=== PATIENT | female | born 1950 | race Caucasian/White ===

== ENCOUNTER 2019-05-21 10:51 | Day surgery (SDC) | payer OTHER, SELFPAY ==
--- NOTE | 2019-05-21 | PATH_ITS ---
[facility] Accession Number: [id number] . 01 Material submitted: . colon - HEPATIC FLEXURE POLYP . 02 Diagnosis: Hepatic Flexure, Polyp, Biopsy: Sessile serrated adenoma with cytological dysplasia. Please see comment. No evidence of malignancy. MRV/05/22/2019 . 02 Comment: Current surveillance guidelines recommend that a sessile serrated adenoma with cytological dysplasia should be treated similar to an advanced adenoma. Complete polypectomy and shortened surveillance interval are recommended. . 02 Electronically signed: . Teresa Shaver MD, Pathologist NPI- [id number] . 01 Gross description: . HEPATIC FLEXURE POLYP: Received in formalin are multiple fragment(s) of luque, soft tissue measuring 0.1 x 0.1 x 0.1 cm to 0.6 x 0.5 x 0.4 cm which is entirely submitted and submitted entirely in 1 cassette(s) /DMC /DMC . 02 Pathologist provided ICD-10: D12.3 . 02 CPT . 175935 Performed at: 01 [facility] [address], [place], [place] [id number] MD Alan Davalos MD Phone: [phone] Performed at: 02 [facility] [place] [address] [place], [place] [id number] MD Teresa Shaver MD Phone: [phone]
[2019-05-21 11:16] VITALS: BP 135/91; PULSE 94; RESP 17; TEMP 36.5; O2SAT 95; BMI 23.6
[2019-05-21] MEDS: SODIUM CHLORIDE 0.9% 1,000 ML 100 ML IV (11:49)
--- NOTE | 2019-05-21 13:02 | PM.HP.1 ---
History of Present Illness Date Patient Seen: 05/21/19 Time Patient Seen: 13:02 Chief complaint: [id number] Narrative: Colorectal cancer screening Patient History Social History household members: spouse Family & Social History Social History: household members spouse Meds Home Medications Medication Instructions Recorded Confirmed Type No Known Home Medications 05/21/19 05/21/19 History Allergies Allergy/AdvReac Type Severity Reaction Status Date / Time No Known Drug Allergies Allergy Verified 05/21/19 11:50 Exam Vital Signs (past 8 hours): - 05/21/19 11:16 Temperature 97.7 F Pulse Rate 94 H Respiratory Rate 17 Blood Pressure 135/91 H Pulse Oximetry 95 Oxygen Delivery Method Room Air Narrative Exam Narrative: Oropharynx free of lesions Chest clear to auscultation percussion Cardiac exam reveals no S3 or murmur Assessment & Plan Assessment & Plan narrative: Need for colorectal cancer screening. Risks, benefits, alternatives to colonoscopy have been explained. This will be performed today.
--- NOTE | 2019-05-21 13:03 | PM.OP.ENDO ---
Operative Date/Time/Diagnoses Date of procedure: 05/21/19 Time of procedure: 13:03 Pre-op diagnosis: See indication and findings Procedure & Clinicians Study performed: Colonoscopy Same procedure as scheduled: Yes Indications: Screening Surgeon: Lance Murillo Procedure Notes Procedure in detail: After informed consent was obtained the patient was placed in the left lateral decubitus position. The video colonoscope was introduced into the rectum slowly advanced to the cecum. On slow withdrawal mucosa was carefully examined. Preparation was good. The scope was removed. The patient tolerated the procedure well. Blood loss none Complications none Sedation Total sedation time 23 minutes Versed 7 mg fentanyl 150 micro g IV titration Findings 1. 2 cm flat polyp with a mucus cap consistent with large flat sessile serrated adenoma. This was injected with 2 cc of saline prior to removing with hot snare in a piecemeal fashion for an endoscopic mucosa resection. Subsequently, a spot was substituted into the needle and the area nearby was tattooed so it can be found in the future. 2. Otherwise negative colonoscopy to cecum Given the large size of this polyp patient will need follow-up in 1 year for surveillance and in particular to make sure that this polyp has been removed completely.
[2019-05-21] MEDS: MIDAZOLAM 5 MG/5 ML VIAL IV (13:51)
[2019-05-21] MEDS: fentaNYL 250 MCG/5 ML INJ IV (13:51)
[2019-05-21 13:52] VITALS: BP 116/72; PULSE 78; RESP 13; TEMP 36.4; O2SAT 97
[2019-05-21 13:57] VITALS: BP 110/71; PULSE 76; RESP 16; O2SAT 96
[2019-05-21 14:02] VITALS: BP 121/79; PULSE 87; RESP 14; O2SAT 98
--- NOTE | 2019-05-21 14:03 | SUR.PHASEI ---
Declined po intake
[2019-05-21 14:08] VITALS: BP 120/78; PULSE 98; RESP 15; TEMP 36.2; O2SAT 99
[2019-05-21 14:45] VITALS: BP 125/80; PULSE 95; RESP 16; TEMP 36.3; O2SAT 99
== END 2019-05-21 14:47 | disposition home or self-care (01) ==
PROVIDERS: Family Provider Internal Medicine; PCP Internal Medicine; Visit Provider Internal Medicine Gastroenterology
PROC: 0DJD8ZZ Inspection of Lower Intestinal Tract, Via Natural or Artificial Opening Endoscopic (ICD-10-PCS; CPT 45378; principal; 2019-05-21 12:30)
DX: Z12.11 Encounter for screening for malignant neoplasm of colon (principal); D12.3 Benign neoplasm of transverse colon
CPT/HCPCS: 45385; 45381; J2250; J3010

== ENCOUNTER → 2020-10-26 18:33 | Outpatient (ROUT) | payer OTHER, SELFPAY ==
[2020-10-26 19:15] LABS: Aspartate Aminotransferase 30 IU/L (14-36); BUN Creatinine Ratio 16.7 (6-22); Blood Urea Nitrogen 13 mg/dL (7-17); Calcium 9.5 mg/dL (8.4-10.2); Carbon Dioxide 29 mmol/L (22-32); Chloride 98 mmol/L (98-107); Cholesterol 227 mg/dL (140-199); Estimated Glomerular Filt Rate > 60.0 mL/min (>60); Glucose 76 mg/dL (80-110); HEMOLYSIS < 15 (0-50); Potassium 3.6 mmol/L (3.4-5.1); Sodium 134 mmol/L (137-145); Triglycerides 52 mg/dL (35-150)
[2020-10-26 19:24] LABS: HDL Cholesterol 114 mg/dL (40-60); LDL Cholesterol Calculated 103 mg/dL (<100)
== END ==
PROVIDERS: Family Provider Internal Medicine; PCP Internal Medicine; Visit Provider Internal Medicine
DX: I10 Essential (primary) hypertension (principal); E78.2 Mixed hyperlipidemia
CPT/HCPCS: 80048; 80061; 84450

== ENCOUNTER 2020-12-29 07:51 | Day surgery (SDC) | payer OTHER, SELFPAY ==
--- NOTE | 2020-12-29 | PATH_ITS ---
[facility] Accession Number: [id number] . 01 Material submitted: . colon - PREVIOUS POLYPECTOMY SITE SCAR . 02 Diagnosis: Colon, Previous Polypectomy Site Scar, Biopsy: Sessile serrated adenoma. MRV 01/03/2021 1347 Local . 02 Electronically signed: . Artur Weinstein MD, PhD, Pathologist NPI- [id number] . 01 Gross description: . PREVIOUS POLYPECTOMY SITE SCAR: Received in formalin are 3 fragment(s) of luque, soft tissue measuring 0.2 x 0.2 x 0.1 cm to 0.3 x 0.2 x 0.2 cm submitted entirely in 1 cassette(s) /MOLLY 12/31/2020 2320 Local . 02 Pathologist provided ICD-10: D12.6 . 02 CPT . 448894 Performed at: 01 [facility] [address], [place], [place] [id number] MD Alan Davalos MD Phone: [phone] Performed at: [address] [facility] [address] [place], [place] [id number] MD Teresa Shaver MD Phone: [phone]
[2020-12-29] MEDS: SODIUM CHLORIDE 0.9% 1,000 ML 84 ML IV (08:00)
[2020-12-29 08:20] LABS: COVID19 -Nasal RAPID Negative (Negative)
[2020-12-29 08:47] VITALS: BP 127/80; PULSE 93; RESP 16; TEMP 36.7; O2SAT 95; BMI 23.3
--- NOTE | 2020-12-29 09:15 | PM.HP.1 ---
History of Present Illness History of Present Illness Date Patient Seen: 12/29/20 Chief complaint: SDC Narrative: History of large sessile serrated adenoma with dysplasia 1 year ago. Need to check for complete removal. Patient History Medical History (Updated 12/29/20 @ 08:40 by Teresa Ribeiro RN) Hypertension Family & Social History Social History: household members spouse Tobacco & Substance use: Smoking Status Never smoker alcohol intake frequency a few times a month Substance Use Type does not use Meds Home Medications and Allergies Home Medications Medication Instructions Recorded Confirmed Type losartan-hydrochlorothiazide 1 tab PO DAILY 12/29/20 12/29/20 History Allergies Allergy/AdvReac Type Severity Reaction Status Date / Time No Known Drug Allergies Allergy Verified 12/29/20 08:40 Exam Vital Signs (past 8 hours): - 12/29/20 08:47 12/29/20 09:05 12/29/20 09:10 Temperature 98.1 F 98.4 F Pulse Rate 93 H 80 77 Respiratory Rate 16 16 22 Blood Pressure 127/80 145/98 H 160/98 H Pulse Oximetry 95 93 93 Oxygen Delivery Method Room Air Oxygen Flow Rate 0 Narrative Exam Narrative: Oropharynx free of lesions Chest clear to auscultation percussion Cardiac exam reveals no S3 or murmur Objective Labs Labs: Laboratory Results - last 24 hr 12/29/20 08:02 SARS-CoV-2 (PCR) Negative Assessment & Plan Assessment & Plan narrative: History of advanced sessile serrated adenoma with dysplasia 1 year ago. Need to check for complete removal and rule out other polyps. Risks, benefits, alternatives have been explained. Quality MIPS - Admit Advanced Care Plan / Current Medications Measures: #47 ? Advanced Care Plan Clinician documentation instruction: document at admission. [] I confirmed that the patient's Advance Care Plan is present, code status is documented, or surrogate decision maker is listed in the patient?s medical record. [SATISFIES [facility] PERFORMANCE] If Yes, Stop Here [] The patient?s Advance Care plan is not present because: (select) [MIPS PERFORMANCE EXCEPTION/EXCLUSION] [] I confirmed today that the patient does not wish or was not able to name a surrogate decision maker or provide an Advance Care Plan. [] Hospice care is currently being provided or has been provided this calendar year [] I did NOT confirm today the presence of an Advance Care Plan or surrogate decision maker documented within the patient's medical record. [DOES NOT SATISFY MIPS PERFORMANCE] #130 - Documentation of Current Medications in the Medical Record Clinician documentation instruction: use macro the first time you see a patient. [] I have utilized all available immediate resources to obtain, update, or review the patient?s current medications. [SATISFIES MIPS PERFORMANCE] If Yes, Stop Here [] The patient is not eligible for medication reconciliation; the patient is in an emergent medical situation where delaying treatment would jeopardize the patient?s health. [MIPS PERFORMANCE EXCEPTION/EXCLUSION] [] I did NOT confirm, update or review the patient's current list of medications today. [DOES NOT SATISFY MIPS PERFORMANCE] MIPS - CL Central Venous Catheter Placement Measure: #76 ? Prevention of Central Venous Catheter (CVC) ? Related Bloodstream Infection Clinician documentation instruction: use macro every time you place a central line. [] All elements of Maximal Sterile Barrier Technique, including hand hygiene, skin prep, and sterile ultrasound technique (if used) were followed. [SATISFIES MIPS PERFORMANCE] If Yes, Stop Here [] If ?No?, the medical reason all elements were NOT used for medical reason [] (ex. emergent condition). [] Maximal Sterile Barrier Technique was not followed, no reason provided [DOES NOT SATISFY MIPS PERFORMANCE] MIPS - DC Heart Failure Measures: #5 - Heart Failure (HF): Angiotensin-Converting Enzyme (ASHU) Inhibitor or Angiotensin Receptor Pilar (ARB) Therapy for Left Ventricular Systolic Dysfunction (LVSD) and #8 - Heart Failure (HF): Beta-Pilar Therapy for Left Ventricular Systolic Dysfunction (LVSD) Clinician documentation instruction: use macro at every CHF discharge. [] The patient has current or prior documentation of left ventricular ejection fraction (LVEF) less than 40%, or moderate or severely depressed left ventricular systolic function. Answer both: [SATISFIES MIPS PERFORMANCE] [] The patient was prescribed or already taking an Angiotensin-Converting Enzyme (ASHU) Inhibitor, or Angiotensin Receptor Pilar (ARB). [] The patient was prescribed or already taking a beta-pilar. If Yes to Both, Stop Here [] Patient not prescribed/taking: [MIPS PERFORMANCE EXCEPTION/EXCLUSION] [] ASHU or ARB for medical/patient/system reason(s) including [] (ex. allergy, intolerance, contraindication) [] Beta-pilar for medical/patient/system reason(s) including [] (ex. allergy, intolerance, contraindication) [] Patient not prescribed/taking: [DOES NOT SATISFY MIPS PERFORMANCE] [] ASHU or ARB, no reason given [] Beta-pilar, no reason given
--- NOTE | 2020-12-29 09:17 | PM.OP.ENDO ---
Operative Date/Time/Diagnoses Date of procedure: 12/29/20 Pre-op diagnosis: See indication and findings Procedure & Clinicians Study performed: Colonoscopy Indications: Large sessile serrated adenoma at the hepatic flexure status post removal. Pathology shows dysplasia. One year follow-up. Surgeon: Lance Murillo Procedure Notes Procedure in detail: After informed consent was obtained the patient was placed left lateral decubitus position. The video colonoscope was introduced the rectum slowly advanced to the cecum. Preparation was good. On slow withdrawal mucosa was carefully examined. Scope was removed. The patient on the procedure well. Blood loss none Complications none Sedation Total sedation time 21 minutes Versed 7 mg fentanyl 150 micro g IV titration Findings 1. Extensive sigmoid diverticulosis 2. Area of scar in the hepatic flexure with tattoo. One area had a little bit of a raised area which was Jumbo biopsy removed x6. This area is completely treated. 3. Otherwise negative colonoscopy to cecum Pending the outcome of biopsies she will need follow-up colonoscopy in 3 or 5 years.
[2020-12-29] MEDS: fentaNYL 250 MCG/5 ML INJ IV (09:45)
[2020-12-29] MEDS: MIDAZOLAM 5 MG/5 ML VIAL IV (09:47)
[2020-12-29 10:02] VITALS: BP 102/67; PULSE 82; RESP 14; TEMP 36.3; O2SAT 96
[2020-12-29 10:06] VITALS: BP 97/69; PULSE 74; RESP 13; O2SAT 95
[2020-12-29 10:11] VITALS: BP 101/73; PULSE 74; RESP 13; O2SAT 97
[2020-12-29 10:15] VITALS: BP 108/66; PULSE 70; RESP 20; TEMP 36.2; O2SAT 98
[2020-12-29 10:30] VITALS: BP 107/63; PULSE 71; RESP 18; TEMP 36.8; O2SAT 98
== END 2020-12-29 10:40 | disposition home or self-care (01) ==
PROVIDERS: Family Provider Internal Medicine; PCP Internal Medicine; Referring Provider Internal Medicine Gastroenterology; Visit Provider Internal Medicine Gastroenterology
PROC: 0DJD8ZZ Inspection of Lower Intestinal Tract, Via Natural or Artificial Opening Endoscopic (ICD-10-PCS; CPT 45378; principal; 2020-12-29 09:30)
DX: D12.3 Benign neoplasm of transverse colon (principal); Z20.822 Contact with and (suspected) exposure to COVID-19; K57.30 Diverticulosis of large intestine without perforation or abscess without bleeding
CPT/HCPCS: 45380; 87635; J2250; J3010

== ENCOUNTER 2024-11-03 09:12 | Day surgery (SDC) | payer MEDICARE, OTHER, SELFPAY ==
--- NOTE | 2024-11-03 10:02 | P.HP_ITS ---
History of Present Illness History of Present Illness Chief complaint: [facility] Narrative: History of sessile serrated adenoma with cytologic dysplasia years ago. Need for follow-up colonoscopy. Location was at the hepatic flexure. [facility] Medical History (Updated 12/29/20 @ 08:40 by Teresa Ribeiro RN) Hypertension Social History household members: spouse Smoking Status: Never smoker Meds Home Medications and Allergies Home Medications Medication Instructions Recorded Confirmed Type losartan 50 mg-hydrochlorothiazide 1 tab PO DAILY 12/29/20 11/03/24 History 12.5 mg tablet Allergies Allergy/AdvReac Type Severity Reaction Status Date / Time No Known Drug Allergies Allergy Verified 11/03/24 10:00 Exam Narrative Exam Narrative: Oropharynx free of lesions Chest clear to auscultation percussion cardiac exam reveals no S3 or murmur Assessment & Plan Assessment & Plan narrative: History of large sessile serrated adenoma taken off endoscopically and with a history of dysplasia. Most recent 4 years ago showed no dysplasia. Was felt to polyp was completely removed but she has a bit late for follow-up. Risks, benefits, alternatives have been explained. Time-Based Coding :: [TOTAL MINUTES] spent with patient and on the chart (including review of chart, obtaining history, exam, reviewing outside data, placing orders, documenting exam and treatment plan, and counseling patient) on [DATE].
--- NOTE | 2024-11-03 10:04 | PM.OP.COLON ---
Operative Date/Time/Diagnoses Date of procedure: 11/03/24 Pre-op diagnosis: See indication and findings Procedure & Clinicians Study performed: Colonoscopy Indications: History of large sessile serrated adenoma at the hepatic flexure status post endoscopic removal need for follow-up colonoscopy. There was also history of dysplasia in the distant past Surgeon: Lance Murillo Procedure Notes Procedure in detail: After informed consent was obtained the patient was placed in left lateral decubitus position. The video colonoscope was introduced the rectum slowly advanced cecum. Preparation was good. On slow withdrawal mucosa was carefully examined. The scope was removed. The patient tolerated procedure well. Blood loss none Complications none Sedation mac Findings 1. Hepatic flexure were least nearby hepatic flexure with mild tattooing and absolutely no evidence of neoplasia or scarring. 2. Otherwise negative colonoscopy to cecum with the exception of mild prep trauma at 15 cm I would suggest patient has follow-up colonoscopy in 3 years but she will probably want to stretch it to 5 years
[2024-11-03 10:20] VITALS: BP 115/76; PULSE 102; RESP 16; TEMP 36.3; O2SAT 98
[2024-11-03] MEDS: LACTATED RINGERS 1,000 ML 42 ML IV (10:22)
[2024-11-03 10:50] VITALS: BP 90/60; PULSE 84; RESP 20; TEMP 36.6; O2SAT 96
[2024-11-03 10:55] VITALS: BP 95/54; PULSE 82; RESP 16; O2SAT 96
[2024-11-03 11:00] VITALS: BP 98/61; PULSE 75; RESP 18; TEMP 36.5; O2SAT 95
[2024-11-03 11:24] VITALS: BP 110/81; PULSE 71; RESP 14; O2SAT 98
== END 2024-11-03 11:25 | disposition home or self-care (01) ==
PROVIDERS: Family Provider Internal Medicine; PCP Internal Medicine; Referring Provider Internal Medicine Gastroenterology; Visit Provider Internal Medicine Gastroenterology
PROC: 0DJD8ZZ Inspection of Lower Intestinal Tract, Via Natural or Artificial Opening Endoscopic (ICD-10-PCS; CPT 45378; principal; 2024-11-03 10:30)
DX: Z86.0101 Personal history of adenomatous and serrated colon polyps (principal); Z12.11 Encounter for screening for malignant neoplasm of colon; I10 Essential (primary) hypertension
CPT/HCPCS: G0105; J2704